=== PATIENT | female | born 1975 | race Two or more races ===

== ENCOUNTER 2020-10-29 09:30 | Inpatient (IN) | payer OTHER ==
[~2020-10-29] VITALS: Ht 170.2 cm; Wt 93.0 kg
[2020-11-02] MEDS ORDERED: DIAZEPAM10 MG PO (07:45)
[2020-11-02] MEDS ORDERED: MEDROLPACK PO (07:45)
[2020-11-02] MEDS ORDERED: AMOX-CLAV 875-1 EAC1 PO (07:45)
[2020-11-02] MEDS ORDERED: NEURONTIN800 MG PO (07:45)
[2020-11-02] MEDS ORDERED: PERCOCET 5-3251 EACH PO (07:45)
[2020-11-02] MEDS ORDERED: COLACE100 MG PO (07:45)
[2020-11-02] MEDS ORDERED: DIAZEPAM5 MG PO (09:57)
[2020-11-03] MEDS ORDERED: ZOFRAN4 MG PO (07:49)
== END 2020-11-03 16:37 | disposition home or self-care (01) | DRG 460 ==
LOC: PED 11-02 04:20 → O/R 11-02 04:20 → SURH 11-02 07:00 → PED 11-02 11:19
PROVIDERS: ADMIT Orthopaedic Surgery Orthopaedic Surgery of the Spine; ATTEND Orthopaedic Surgery Orthopaedic Surgery of the Spine
PROC: 07DR0ZZ Extraction of Iliac Bone Marrow, Open Approach (ICD-10-PCS; 2020-11-02)
PROC: 0SG00A0 Fusion of Lumbar Vertebral Joint with Interbody Fusion Device, Anterior Approach, Anterior Column, Open Approach (ICD-10-PCS; principal; 2020-11-02 07:00)
DX: M48.062 Spinal stenosis, lumbar region with neurogenic claudication (principal); M43.16 Spondylolisthesis, lumbar region